=== PATIENT | male | born 1995 | race Caucasian/White ===

== ENCOUNTER 2017-01-21 00:10 | Emergency (ER) | payer OTHER ==
[~2017-01-21] VITALS: Ht 177.8 cm; Wt 87.7 kg
[~2017-01-21 00:10] MED LIST: AMOXICILLIN500 M1 PO; AUGMENTIN875 MG PO; BACTRIM,SEPT1 TABLET PO; CEFDINIR300 MG PO; IBUPROFEN400 MG PO; MOTRIN800 MG PO; NAPROSYN500 MG PO; NORCO 5/3251 TABLET PO; PEPCID40 MG PO; ZOFRAN4 MG PO
[2017-01-21 02:21] VITALS: BP 136/80
== END 2017-01-21 02:21 | disposition home or self-care (01) ==
LOC: EME 00:10
DX: S09.90XA Unspecified injury of head, initial encounter (principal); Y04.0XXA Assault by unarmed brawl or fight, initial encounter; Y93.01 Activity, walking, marching and hiking; Y92.830 Public park as the place of occurrence of the external cause
CPT/HCPCS: 70486; 99281; 99284